=== PATIENT | female | born 1995 | race American Indian/Alaskan Native ===

== ENCOUNTER 2019-05-30 07:41 | Emergency (ER) | payer OTHER ==
[2019-05-30 07:46] VITALS: BP 131/83
--- NOTE | 2019-05-30 09:06 | Emergency Department Report ---
- General Chief complaint: Skin Rash Stated complaint: IRRITATED/ITCHY SKIN Time Seen by Provider: 05/30/19 08:42 Source: patient Mode of arrival: Ambulatory Limitations: No Limitations - History of Present Illness Initial comments: Alejandra is a healthy 23 yo female who presents with rash on arms legs for one week after being outside for may. She recently completed amoxicillin prescribed from another ER for a sinus infection. Itchy red rash. Small bumps on arms are improving.. Redness on leg with blisters. complaint: rash -: Gradual, week(s) (1) Location: LUE, RUE, LLE, RLE Severity: mild Quality: other (itchy) Consistency: constant Improves with: other (oatmeal bath) Worsens with: none Associated symptoms: denies other symptoms - Related Data Previous Rx's Medication Instructions Recorded Last Taken Type Hydrocortisone [Hydrocortisone 28.35 gm TP BID 10 Days #1 05/30/19 Unknown Rx 2.5% OINT] oint...g. Prednisone [predniSONE 10 mg 10 mg PO .TAPER #1 tab.ds.pk 05/30/19 Unknown Rx (6-Day Pack, 21 Tabs)] Allergies Allergy/AdvReac Type Severity Reaction Status Date / Time No Known Allergies Allergy Unverified 05/30/19 07:43 Abscess Boil HPI - HPI Chief Complaint: Skin Rash Stated Complaint: IRRITATED/ITCHY SKIN Time Seen by Provider: 05/30/19 08:42 Home Medications: Previous Rx's Medication Instructions Recorded Last Taken Type Hydrocortisone [Hydrocortisone 28.35 gm TP BID 10 Days #1 05/30/19 Unknown Rx 2.5% OINT] oint...g. Prednisone [predniSONE 10 mg 10 mg PO .TAPER #1 tab.ds.pk 05/30/19 Unknown Rx (6-Day Pack, 21 Tabs)] Allergies/Adverse Reactions: Allergies Allergy/AdvReac Type Severity Reaction Status Date / Time No Known Allergies Allergy Unverified 05/30/19 07:43 ED Review of Systems ROS: Stated complaint: IRRITATED/ITCHY SKIN Other details as noted in HPI Constitutional: denies: fever, malaise Cardiovascular: denies: chest pain Gastrointestinal: denies: abdominal pain Skin: rash, lesions ED Past Medical Hx - Past Medical History Previous Medical History?: No - Surgical History Past Surgical History?: No - Social History Smoking Status: Never Smoker Substance Use Type: None - Medications Home Medications: Home Medications Medication Instructions Recorded Confirmed Last Taken Type Hydrocortisone [Hydrocortisone 28.35 gm TP BID 10 Days #1 05/30/19 Unknown Rx 2.5% OINT] oint...g. Prednisone [predniSONE 10 mg 10 mg PO .TAPER #1 tab.ds.pk 05/30/19 Unknown Rx (6-Day Pack, 21 Tabs)] ED Physical Exam - General Limitations: No Limitations General appearance: alert, in no apparent distress - Head Head exam: Present: atraumatic, normocephalic - Eye Eye exam: Present: normal appearance - ENT ENT exam: Present: normal orophraynx, mucous membranes moist - Neck Neck exam: Present: normal inspection, full ROM - Respiratory Respiratory exam: Absent: respiratory distress - Skin Skin exam: Present: other (fine papular rash upper arms, left leg red confluent patches with small blisters) ED Course Vital Signs 05/30/19 07:43 Temperature 98.5 F Pulse Rate 88 Respiratory 18 Rate Blood Pressure 131/83 O2 Sat by Pulse 100 Oximetry ED Medical Decision Making - Medical Decision Making Contact dermatitis due to poison oak/elsie Prescribed prednisone and hydrocortisone ointment Critical care attestation.: If time is entered above; I have spent that time in minutes in the direct care of this critically ill patient, excluding procedure time. ED Disposition Clinical Impression: Poison elsie dermatitis Disposition: [id number] TO HOME OR SELFCARE Is pt being admited?: No Does the pt Need Aspirin: No Condition: Stable Instructions: Poison Elsie (ED) Prescriptions: Hydrocortisone [Hydrocortisone 2.5% OINT] 28.35 gm TP BID 10 Days #1 oint...g. Prednisone [predniSONE 10 mg (6-Day Pack, 21 Tabs)] 10 mg PO .TAPER #1 tab.ds.pk Referrals: ELLIOTT PURCELL MD [Primary Care Provider] - 3-5 Days Forms: Work/School Release Form(ED)
[2019-05-30] MEDS ORDERED: DELTASONE PO ONE (09:09)
== END 2019-05-30 09:26 | disposition home or self-care (01) ==
LOC: ED 07:41
DX: L23.7 Allergic contact dermatitis due to plants, except food (principal)
CPT/HCPCS: 99282; J7512